=== PATIENT | male | born 1975 | race Caucasian/White ===

== ENCOUNTER 2018-03-20 13:35 | Emergency (ER) | payer OTHER ==
[2018-03-20 13:48] VITALS: BP 135/72
--- NOTE | 2018-03-20 14:37 | UC ---
General HPI - HPI Summary HPI Summary: 42 yo gentleman presents with spouse c/o funny heart beat "aware" of heart beat and some irregularity over the last 2 weeks. He is able to maintain full daily routine, including running on treadmill every morning. No change in symptoms during excercise other than expected increase HR, but no pain/ unusual sob / pressure. No recent illness. No GI sx, no melena / brbpr. Positional changes noncontributory. Does drink caffeine daily. Last night reports that he decided to schedule an appointment with PCP to be seen, but when he called the office, they told him to come to [facility] instead. He will see PCP on (today is ). Nonsmoker lifetime, no sign family cardiac d/o. + cancer hx in family. Pt himself considers health decent. No rash. - History of Current Complaint Chief Complaint: UCCardiac Stated Complaint: IRREGULAR HEART BEAT Time Seen by Provider: 03/20/18 14:28 Hx Obtained From: Patient Pain Intensity: 0 - Allergy/Home Medications Allergies/Adverse Reactions: Allergies Allergy/AdvReac Type Severity Reaction Status Date / Time No Known Allergies Allergy Verified 03/20/18 13:48 PMH/Surg Hx/FS Hx/Imm Hx Previously Healthy: Yes - Surgical History Surgical History: Yes Surgery Procedure, Year, and Place: varicelectomy - Family History Known Family History: Positive: Other - see hpi - Social History Alcohol Use: Rare Substance Use Type: None Smoking Status (MU): Former Smoker When Did the Patient Quit Smoking/Using Tobacco: 1997 Review of Systems All Other Systems Reviewed And Are Negative: Yes Constitutional: Positive: Negative Skin: Positive: Negative Eyes: Positive: Negative ENT: Positive: Negative Respiratory: Positive: Negative Cardiovascular: Positive: Other - see hpi Gastrointestinal: Positive: Negative Genitourinary: Positive: Negative Motor: Positive: Negative Neurovascular: Positive: Negative Musculoskeletal: Positive: Negative Neurological: Positive: Negative Psychological: Positive: Negative Is Patient Immunocompromised?: No Physical Exam Triage Information Reviewed: Yes Appearance: Well-Appearing, Well-Nourished Vital Signs: Initial Vital Signs Temp 98.2 F 03/20/18 13:44 Pulse 60 03/20/18 13:44 Resp 14 03/20/18 13:44 BP 135/72 03/20/18 13:44 Pulse Ox 94 03/20/18 13:44 Vital Signs Reviewed: Yes Eye Exam: Normal ENT Exam: Normal Neck exam: Normal Neck: Positive: Supple Respiratory Exam: Normal Respiratory: Positive: Chest non-tender, Lungs clear, Normal breath sounds, No respiratory distress, No accessory muscle use Cardiovascular Exam: Other - during the course of examination, I detected a couple irregular or skipped beats. Not reflected on EKG. Correlates with pulse. Cardiovascular: Positive: RRR, No Murmur, Pulses Normal, Brisk Capillary Refill Course/Dx - Course Course Of Treatment: Reviewed EKG, sinus rhythm at 70 bpm. ND 169, QTc 422. No pain, pressure, etc. Mr. Guzmán will decrease caffeine, by 1/2 every 2 days , he does drink quite a bit. Hopefully this will help. He will go to the Emerg Dept for any problems, worse or new symptoms. Did note a couple irregular / skipped beats during examination. May need further w/u, per discretion of pcp. Will f/u Dr. Grier in 2 days. Blood work drawn today, see orders. Chest xray, see [facility] report. NAD. Mr. Guzmán and spouse were given the opportunity to ask several insightful questions to which I answered to the best of my ability. - Diagnoses Provider Diagnosis: Palpitations Discharge - Sign-Out/Discharge Documenting (check all that apply): Patient Departure All imaging exams completed and their final reports reviewed: Yes - Discharge Plan Condition: Stable Disposition: HOME Patient Education Materials: Heart Palpitations (ED) Referrals: Viky Grier MD [Primary Care Provider] - Additional Instructions: Follow up with Dr. Grier as scheduled this week. Go to the Emergency Department for worse or new problems. Drink plenty of fluids. Minimize caffeine. - Billing Disposition and Condition Condition: STABLE Disposition: Home
[2018-03-20 18:26] LABS: ABS Basophils 0.1 10^3/ul (0-0.2); ABS Eosinophils 0.2 10^3/ul (0-0.6); ABS Lymphocytes 3.2 10^3/ul (1.0-4.8); ABS Monocytes 0.4 10^3/ul (0-0.8); ABS Neutrophils 4.2 10^3/ul (1.5-7.7); ABS Nucleated RBC 0 10^3/ul; Eosinophil % 2.9 %; Hematocrit 41 % (42-52); Lymphocyte % 39.4 %; Mean Corpuscular HGB Conc 34 g/dl (31-36); Mean Corpuscular Hemoglobin 30 pg (27-31); Mean Corpuscular Volume 88 fL (80-94); Mean Platelet Volume 8.7 fL (7.4-10.4); Nucleated Red Blood Cells % 0; Platelet Count 243 10^3/ul (150-450); Red Blood Count 4.73 10^6/ul (4.00-5.40); Red Cell Distribution Width 12 % (10.5-15); White Blood Count 8.1 10^3/ul (3.5-10.8)
[2018-03-20 18:42] LABS: Albumin 4.8 g/dL (3.2-5.2); Calcium 9.5 mg/dL (8.6-10.3); Magnesium 2.2 mg/dL (1.9-2.7); Potassium 4.2 mmol/L (3.5-5.0); Total Bilirubin 0.5 mg/dL (0.2-1.0)
[2018-03-20 18:48] LABS: Albumin/Globulin Ratio 1.9 (1-3); BUN/Creatinine Ratio 14.6 (8-20); C Reactive Protein 4.49 mg/L (<8.01); EGFR African American 112.9 (>60); EGFR Non-African American 93.3 (>60); Globulin 2.5 g/dL (2-4); Total Protein 7.3 g/dL (6.4-8.9)
[2018-03-20 18:51] LABS: TSH (Thyroid Stimulating Horm) 2.94 mcIU/mL (0.34-5.60)
[2018-03-20 19:06] LABS: Erythrocyte Sed Rate 19 mm/Hr (0-14)
--- NOTE | 2018-03-21 07:37 | UC ---
- Progress Note Progress Note: LABS UNREMARKABLE. KEEP PCP F/U SCHEDULED. Course/Dx - Diagnoses Provider Diagnoses: Palpitations Discharge - Sign-Out/Discharge Documenting (check all that apply): Post-Discharge Follow Up All imaging exams completed and their final reports reviewed: Yes - Discharge Plan Condition: Stable Disposition: HOME Patient Education Materials: Heart Palpitations (ED) Referrals: Viky Grier MD [Primary Care Provider] - Additional Instructions: Follow up with Dr. Grier as scheduled this week. Go to the Emergency Department for worse or new problems. Drink plenty of fluids. Minimize caffeine. - Billing Disposition and Condition Condition: STABLE Disposition: Home
== END 2018-03-20 15:10 | disposition home or self-care (01) ==
LOC: UCEAST 13:35
DX: R00.2 Palpitations (principal); Z87.891 Personal history of nicotine dependence
CPT/HCPCS: 36415; 71046; 80053; 83735; 84443; 85025; 85652; 86140; 93005; 99211; G0463

== ENCOUNTER 2019-04-03 08:35 | Emergency (ER) | payer OTHER ==
[2019-04-03 08:48] VITALS: BP 153/92
--- NOTE | 2019-04-03 11:17 | UC ---
Respiratory Complaint HPI - HPI Summary HPI Summary: PATIENT HAS HAD INTERMITTENT URI SYMPTOMS INCLUDING COUGH AND CONGESTION FOR SEVERAL WEEKS. OVER THE PAST COUPLE OF DAYS HAS DEVELOPED A SORE THROAT AND PAIN WITH SWALLOWING. IS TRAVELING LATER THIS WEEK AND IS CONCERNED ABOUT WORSENING SYMPTOMS. - History of Current Complaint Chief Complaint: UCGeneralIllness Stated Complaint: COLD Time Seen by Provider: 04/03/19 09:12 Hx Obtained From: Patient Onset/Duration: Gradual Onset, Lasting Weeks, Still Present Severity Initially: Moderate Severity Currently: Moderate Pain Intensity: 3 Pain Scale Used: 0-10 Numeric Character: Cough: Nonproductive Aggravating Factors: Nothing Alleviating Factors: Nothing Associated Signs And Symptoms: Positive: URI, Nasal Congestion. Negative: Fever , Wheezing - Allergies/Home Medications Allergies/Adverse Reactions: Allergies Allergy/AdvReac Type Severity Reaction Status Date / Time No Known Allergies Allergy Verified 03/20/18 13:48 Home Medications: Home Medications Multivitamins/Minerals TAB* [Theragran/minerals TAB*] 1 tab PO DAILY 11/24/17 [ History Confirmed 03/23/18] Ubidecarenone [Co Q-10] 100 mg PO DAILY 11/24/17 [History Confirmed 03/23/18] Ascorbic Acid TAB* [Vitamin C TAB*] 500 mg PO DAILY 04/03/19 [History Confirmed 04/03/19] Azithromycin 500 mg PO DAILY #5 tablet 04/03/19 [Rx] predniSONE 50 mg TAB [Deltasone 50 mg TAB] 50 mg PO DAILY #5 tab 04/03/19 [Rx] PMH/Surg Hx/FS Hx/Imm Hx Previously Healthy: Yes - Surgical History Surgical History: Yes Surgery Procedure, Year, and Place: varicelectomy - Family History Known Family History: Positive: Non-Contributory - Social History Alcohol Use: Rare Substance Use Type: None Smoking Status (MU): Former Smoker When Did the Patient Quit Smoking/Using Tobacco: 1997 Review of Systems All Other Systems Reviewed And Are Negative: Yes Constitutional: Positive: Fatigue ENT: Positive: Sore Throat, Nasal Discharge Respiratory: Positive: Cough Cardiovascular: Positive: Negative Gastrointestinal: Positive: Negative Physical Exam Triage Information Reviewed: Yes Appearance: Well-Appearing, No Pain Distress, Well-Nourished Vital Signs: Initial Vital Signs Temp 99.3 F 04/03/19 08:43 Pulse 75 04/03/19 08:43 Resp 16 04/03/19 08:43 BP 153/92 04/03/19 08:43 Pulse Ox 96 04/03/19 08:43 Laboratory Tests 04/03/19 09:17 Group A Strep Rapid Negative Vital Signs Reviewed: Yes Eyes: Positive: Conjunctiva Clear ENT: Positive: Hearing grossly normal, Pharynx normal, TMs normal Neck: Positive: Supple, Nontender, No Lymphadenopathy Respiratory Exam: Normal Cardiovascular Exam: Normal Abdomen Description: Positive: Soft Musculoskeletal: Positive: No Edema Neurological: Positive: Alert Psychological: Positive: Age Appropriate Behavior Skin: Negative: Rashes Respiratory Course/Dx - Differential Dx/Diagnosis Provider Diagnosis: Acute bronchitis, Acute pharyngitis Discharge ED - Sign-Out/Discharge Documenting (check all that apply): Patient Departure All imaging exams completed and their final reports reviewed: No Studies - Discharge Plan Condition: Stable Disposition: HOME Prescriptions: Azithromycin 500 mg PO DAILY #5 tablet predniSONE 50 mg TAB [Deltasone 50 mg TAB] 50 mg PO DAILY #5 tab Patient Education Materials: Pharyngitis (ED), Acute Bronchitis (ED) Referrals: Viky Grier MD [Primary Care Provider] - If Needed Additional Instructions: STREP NEGATIVE. YOUR SYMPTOMS MAY BE VIRALLY MEDIATED BUT GIVEN THE LENGTH OF TIME YOU HAVE BEEN ILL WE WILL COVER YOU WITH ANTIBIOTICS. TAKE THE MEDICINE FOR THE FULL COURSE. REST, HYDRATE, OTC MEDS NEEDED. WILL ALSO TREAT WITH PREDNISONE TO HELP WITH AIRWAY INFLAMMATION. SEEK FOLLOW-UP WITH YOUR PCP IF YOU ARE NOT IMPROVING OVER THE NEXT 1-2 WEEKS. - Billing Disposition and Condition Condition: STABLE Disposition: Home
== END 2019-04-03 10:01 | disposition home or self-care (01) ==
LOC: UCEAST 08:35
DX: J20.9 Acute bronchitis, unspecified (principal); J02.9 Acute pharyngitis, unspecified; R09.89 Other specified symptoms and signs involving the circulatory and respiratory systems; Z87.891 Personal history of nicotine dependence
CPT/HCPCS: 87651; 99212; G0463